=== PATIENT | male | born 1995 | race African-American/Black ===

== ENCOUNTER 2017-01-04 04:38 | Emergency (ER) | payer MEDICAID ==
[~2017-01-04] VITALS: Ht 180.3 cm; Wt 81.0 kg
[2017-01-04 05:06] LABS: BASOPHILS % 0.8 % (0.0-2.0); EOSINOPHILS % 8.4 % (0.0-5.0); HEMATOCRIT. 41.2 % (42.0-52.0); LYMPHOCYTES % 31.6 % (20.0-50.0); MEAN CORPUSCULAR HEMOGLOBIN 30.2 pg (28.0-32.0); MEAN CORPUSCULAR VOLUME 88.9 fL (80.0-94.0); MEAN PLATELET VOLUME 7.9 fl (7.4-10.4); NEUTROPHILS % 53.2 % (40.0-76.0); PLATELET 262 x1000/uL (130-400); RED BLOOD CELL COUNT 4.64 mill/uL (4.7-6.1); RED CELL DISTRIBUTION WIDTH 12.8 % (11.6-14.6); WHITE BLOOD COUNT 9.1 x1000/uL (4.5-11.0)
[2017-01-04 05:11] LABS: INR 1.1; PROTHROMBIN TIME 11.4 sec
[2017-01-04 05:18] LABS: ALANINE AMINOTRANSFERASE 17 IU/L (13-61); ALBUMIN 3.8 g/dL (3.4-5.0); ANION GAP 14; CALCIUM 8.9 mg/dL (8.5-10.1); CARBON DIOXIDE 26 mEq/L (21-32); CHLORIDE 106 mEq/L (98-107); INDEX HEMOLYSI 2 (1-3); INDEX ICTERIC 1 (1-4); INDEX LIPEMIC 1 (1-3); UREA NITROGEN BLOOD 10 mg/dL (7-21); eGFR > 60 mL/min (>60)
[2017-01-04 07:38] LABS: BASOPHILS % 0.4 % (0.0-2.0); EOSINOPHILS % 3.1 % (0.0-5.0); HEMATOCRIT. 40.5 % (42.0-52.0); HEMOGLOBIN. 13.9 g/dL (14.0-18.0); LYMPHOCYTES % 11.4 % (20.0-50.0); MEAN CORPUSCULAR HEMOGLOBIN 30.5 pg (28.0-32.0); MEAN CORPUSCULAR HGB CONC 34.2 g/dL (31.0-37.0); MONOCYTES % 5.1 % (2.0-8.0); PLATELET 248 x1000/uL (130-400); RED BLOOD CELL COUNT 4.55 mill/uL (4.7-6.1); RED CELL DISTRIBUTION WIDTH 13.1 % (11.6-14.6); WHITE BLOOD COUNT 9.4 x1000/uL (4.5-11.0)
[2017-01-04 07:41] LABS: INR 1.1; PARTIAL THROMBOPLASTIN TIME 29.1 sec (24.0-34.0); PROTHROMBIN TIME 11.4 sec
[2017-01-04 07:44] LABS: ALBUMIN 3.7 g/dL (3.4-5.0); ANION GAP 11; CALCIUM 9.1 mg/dL (8.5-10.1); CARBON DIOXIDE 27 mEq/L (21-32); CHLORIDE 108 mEq/L (98-107); INDEX HEMOLYSI 1 (1-3); INDEX ICTERIC 1 (1-4); INDEX LIPEMIC 1 (1-3)
[2017-01-04 07:50] LABS: ALANINE AMINOTRANSFERASE 17 IU/L (13-61); UREA NITROGEN BLOOD 11 mg/dL (7-21); eGFR > 60 mL/min (>60)
[2017-01-04 07:52] LABS: TROPONIN I 0.03 ng/mL (0.00-0.04)
[2017-01-04 09:07] LABS: *AMPHETAMINES SCREEN URINE PRESUMTIVE POSITIVE (NEGATIVE); *BARBITURATES SCREEN URINE NEGATIVE (NEGATIVE); *BENZODIAZEPINES SCREEN URINE NEGATIVE (NEGATIVE); *COCAINE SCREEN URINE NEGATIVE (NEGATIVE); CANNABINOID URINE SCREEN PRESUMTIVE POSITIVE (NEGATIVE); ECSTASY MDMA SCREEN URINE NEGATIVE (NEGATIVE); METHADONE URINE SCREEN NEGATIVE (NEGATIVE); OPIATES URINE SCREEN NEGATIVE (NEGATIVE); PHENCYCLIDINE URINE SCREEN NEGATIVE (NEGATIVE)
[2017-01-04] MEDS ORDERED: TETANUS, DIPHTHERIA, PERTUSSIS VAC/PF 0.5ML (>7YR OLD) IM ONE (10:15)
[2017-01-04 11:47] VITALS: BP 109/60
== END 2017-01-04 11:49 | disposition home or self-care (01) ==
LOC: ER 04:39
DX: R55 Syncope and collapse (principal); F12.10 Cannabis abuse, uncomplicated; F15.10 Other stimulant abuse, uncomplicated; R51 Headache; M54.2 Cervicalgia; R41.3 Other amnesia; F17.200 Nicotine dependence, unspecified, uncomplicated
CPT/HCPCS: 36415; 70450; 71010; 72125; 80053; 80305; 84484; 85025; 85610; 85730; 93005; 99285; Z7610